=== PATIENT | female | born 1960 | race Caucasian/White ===

== ENCOUNTER 2017-11-17 08:50 | Emergency (ER) | payer OTHER ==
[~2017-11-17] VITALS: Ht 160 cm; Wt 95.3 kg
[2017-11-17 08:50] VITALS: BP 140/80
[~2017-11-17 08:50] MED LIST: ATI.5 PO
--- NOTE | 2017-11-17 08:51 | NUR ---
PT BIBA ALS TO BED 4
--- NOTE | 2017-11-17 09:15 | NUR ---
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 PT STATES, "I AM HAVING AN ALCOHOL WITHDRAWAL". PER PT HER LAST DRINK WAS LATE LAST NIGHT. PT REPORTS "TREMORS" BUT NONE ARE NOTED AT THIS TIME. PT PRESENTS ANXIOUS AND RESTLESS. PT O2 SAT 99% RA. HR 98 AT THIS TIME. RR EVEN AND UNLABORED. LUNGS CLEAR. PT SPEAKING IN FULL, COMPLETE, AND APPROPRIATE SENTENCES. SEIZURE PRCAUTIONS INITIATED AT THIS TIME A PRECAUTIONARY MEASURE. PT DENIES HX SEIZURES. DENIES N/V/D/FEVER/CHILLS. PT PRESENTS WITH SKIN THAT IS WARM AND DRY TO THE TOUCH. ABD SOFT, NON-TENDER. GCS 15. CMS INTACT. ER MD ROLLE NOTIFIED. PT NEEDS MET. SAFETY PRECAUTIONS IN PLACE. WILL CONTINUE TO MONITOR.
[2017-11-17] MEDS ORDERED: LORazepam 2 MG/ML VIAL IVP ONE (09:25)
[2017-11-17] MEDS ORDERED: NACL 0.9% 1,000 ML IV ONE (09:25)
[2017-11-17] MEDS ORDERED: MULTIVITAMIN-12 10 ML, THIAMINE 100 MG, MAGNESIUM SULFATE 50% 2,000 MG, FOLIC ACID 5 MG... IV ONE ×5 (09:25)
[2017-11-17] MEDS ORDERED: diphenhydrAMINE 50 MG/ML VIAL IVP ONE (09:25)
--- NOTE | 2017-11-17 09:35 | NUR ---
XRAY AT BEDSIDE
--- NOTE | 2017-11-17 09:42 | NUR ---
XRAY AT BEDSIDE AT THIS TIME.
[2017-11-17 09:53] LABS: BASOPHILS # (AUTO) 0.1 K/uL (0.00-0.22); BASOPHILS % (AUTO) 1.8 % (0.0-2.0); EOSINOPHILS % (AUTO) 0.7 % (0.0-4.0); HEMATOCRIT 44.3 % (36-48); HEMOGLOBIN 15.4 g/dL (12.0-16.0); LYMPHOCYTES # (AUTO) 1.8 K/uL (2.5-16.5); LYMPHOCYTES % (AUTO) 28.4 % (20.5-51.1); MEAN CORPUSCULAR HEMOGLOBIN 31 pg (27-31); MEAN CORPUSCULAR HGB CONC 35 g/dL (33-37); MEAN CORPUSCULAR VOLUME 90.2 fL (80-94); MONOCYTES # (AUTO) 0.2 K/uL (0.8-1.0); MONOCYTES % (AUTO) 3.7 % (1.7-9.3); NEUTROPHILS # (AUTO) 4.1 K/uL (1.8-7.7); NEUTROPHILS % (AUTO) 65.4 % (42.2-75.2); PLATELET COUNT (AUTO) 218 K/uL (140-450); RED BLOOD CELL COUNT(AUTO) 4.91 MIL/uL (4.20-5.40); RED CELL DISTRIBUTION WIDTH 13.1 % (11.6-13.7); WHITE BLOOD COUNT (AUTO) 6.3 K/uL (4.8-10.8)
[2017-11-17 10:05] LABS: ANION GAP 15.2 (8-16); CARBON DIOXIDE 25.8 mmol/L (21-32); CREATININE 0.7 mg/dL (0.6-1.3)
[2017-11-17 10:12] LABS: ALBUMIN 3.9 g/dL (3.4-5.0); TOTAL BILIRUBIN 0.7 mg/dL (0.0-1.0)
--- NOTE | 2017-11-17 10:29 | NUR ---
Pt in hospital bed at this time w/ at the bedside. safety and seizure precautions in place. vss. will continue to monitor.
[2017-11-17] MEDS ORDERED: hydrOXYzine 50 MG/ML VIAL IM ONE (10:40)
--- NOTE | 2017-11-17 11:25 | NUR ---
pt ambulates to restroom at this time from bed 4 w/ steady gait w/ for assist.
[2017-11-17] MEDS ORDERED: hydrOXYzine HCL 25 MG TAB PO ONE (12:00)
--- NOTE | 2017-11-17 12:10 | NUR ---
PT UP FOR DISCHARGE AT THIS TIME, BUT PT RECEIVED [place] MINUTES AGO, IN ADDITION TO BANANA BAG STILL RUNNING. PT MONITORING TO BE CONTINUED AT THIS TIME. PT REMAINS AT BEDSIDE.
[2017-11-17 12:13] LABS: APPEARANCE,URINE CLEAR (CLEAR); BILIRUBIN,URINE NEGATIVE (NEGATIVE); BLOOD, URINE 2+ (NEGATIVE); COLOR,URINE YELLOW (YELLOW); UGLUCOSE NEG (NEGATIVE)
[2017-11-17 12:14] LABS: LEUKOCYTE ESTERASE ,URINE NEGATIVE (NEGATIVE); NITRITE, URINE NEGATIVE (NEGATIVE)
--- NOTE | 2017-11-17 12:19 | NUR ---
PT RESTING IN [facility] AT THIS TIME W/ VSS. SAFETY AND SEIZURE PRECAUTIONS IN PLACE. PT AT BEDSIDE. RR EVEN AND UNLABORED. WILL CONTINUE TO MONITOR.
[2017-11-17] MEDS ORDERED: LORazepam 2 MG/ML VIAL IM ONE (12:25)
[2017-11-17 12:51] LABS: BARBITURATE, URINE NEGATIVE ng/ml (NEG <=200); BENZODIAZEPINE, URINE NEGATIVE ng/mL (NEG <=200); CANNABINOID, URINE NEGATIVE ng/mL (NEG <=50); COCAINE, URINE NEGATIVE ng/mL (NEG <=300); OPIATE, URINE NEGATIVE ng/mL (NEG <=2000); PHENCYCLIDINE SCREEN,URINE NEGATIVE ng/mL (NEG <=25)
[2017-11-17 12:57] LABS: RBC,URINE 0-5 (RARE) /HPF (0-5); WBC,URINE NONE SEEN /HPF (0-5)
--- NOTE | 2017-11-17 13:02 | NUR ---
Pt resting [place] [facility] [place] at this time w/ rr even and unlabored, lung evangelista clear. vss. safety and seizure precautions in place. family remains at bedside. pt needs met. will continue to monitor.
[2017-11-17 13:17] VITALS: BP 131/85
--- NOTE | 2017-11-17 13:25 | NUR ---
Patient discharged with v/s stable. Written and verbal after care instructions given and explained. Patient alert, oriented and verbalized understanding of instructions. Ambulatory with steady gait. All questions addressed prior to discharge. ID band removed. Patient advised to follow up with PMD. Rx of Vistaril given. Patient educated on indication of medication including possible reaction and side effects. Opportunity to ask questions provided and answered.
--- NOTE | 2017-11-20 13:15 | NUR ---
LATE SUBMISSION BANANA BAG START TIME 1130 END TIME 1325 NS START TIME 0940 END TIME 1325
== END 2017-11-17 13:25 | disposition home or self-care (01) ==
LOC: MED 08:50
DX: F10.129 Alcohol abuse with intoxication, unspecified (principal); J45.909 Unspecified asthma, uncomplicated; E11.9 Type 2 diabetes mellitus without complications; I10 Essential (primary) hypertension; Z88.6 Allergy status to analgesic agent; Y90.6 Blood alcohol level of 120-199 mg/100 ml
CPT/HCPCS: 36415; 71045; 80053; 80305; 81001; 83735; 84484; 85025; 93005; 96361; 96365; 96366; 96372; 96375; 99285; A9153; G0482; J1200; J2060; J3411; J3475; J3490; J7030; J3410

== ENCOUNTER 2018-05-28 15:57 | Emergency (ER) | payer OTHER ==
[~2018-05-28] VITALS: Ht 160 cm; Wt 113.4 kg
--- NOTE | 2018-05-28 15:57 | NUR ---
PT BIBA BLS TO BED 10
[2018-05-28 16:00] VITALS: BP 150/93
--- NOTE | 2018-05-28 16:10 | NUR ---
PATIENT FROM HOME. PATIENT ABLE TO ANSWER QUESTIONS SLOWLY,STILL ALTERED. BEEN DRINKING BEER PER PATIENT. DENIES PAIN AT THIS TIME. HX: ALCOHOLISM. PATIENT STATED SHE TAKES NORCO FOR LEG INJURY DENIES N/V/D; SKIN IS PINK/WARM/DRY; AAOX4 WITH EVEN AND STEADY GAIT; LUNGS CLEAR BL; HR EVEN AND REGULAR; PT DENIES ANY FEVER, CP, SOB, OR COUGH AT THIS TIME; PATIENT STATES PAIN OF 0/10 AT THIS TIME; VSS; PATIENT POSITIONED FOR COMFORT; HOB ELEVATED; BEDRAILS UP X2; BED DOWN. ER MD MADE AWARE OF PT STATUS.
--- NOTE | 2018-05-28 16:34 | NUR ---
TECH AT BEDSIDE PREFORMING EKG
[2018-05-28 16:56] LABS: BASOPHILS # (AUTO) 0.1 K/uL (0.00-0.22); BASOPHILS % (AUTO) 1.7 % (0.0-2.0); EOSINOPHILS % (AUTO) 0.3 % (0.0-4.0); HEMATOCRIT 43.1 % (36-48); HEMOGLOBIN 14.3 g/dL (12.0-16.0); LYMPHOCYTES # (AUTO) 2.1 K/uL (2.5-16.5); LYMPHOCYTES % (AUTO) 39.1 % (20.5-51.1); MEAN CORPUSCULAR HEMOGLOBIN 31 pg (27-31); MEAN CORPUSCULAR HGB CONC 33 g/dL (33-37); MONOCYTES # (AUTO) 0.4 K/uL (0.8-1.0); MONOCYTES % (AUTO) 7.9 % (1.7-9.3); NEUTROPHILS # (AUTO) 2.7 K/uL (1.8-7.7); PLATELET COUNT (AUTO) 219 K/uL (140-450); RED BLOOD CELL COUNT(AUTO) 4.63 MIL/uL (4.20-5.40); RED CELL DISTRIBUTION WIDTH 13.2 % (11.6-13.7); WHITE BLOOD COUNT (AUTO) 5.3 K/uL (4.8-10.8)
--- NOTE | 2018-05-28 17:22 | NUR ---
#14 MICRONESIAN STRAIGHT CATH KIT USED TO OBTAIN URINE SAMPLE. STERILE TECHNIQUE USED. PATIENT TOLERATED WELL.
[2018-05-28 17:28] LABS: ANION GAP 12.7 (8-16); POTASSIUM 3.7 mmol/L (3.5-5.1)
[2018-05-28 17:29] LABS: CREATININE 0.6 mg/dL (0.6-1.3)
[2018-05-28 17:34] LABS: ALBUMIN 3.6 g/dL (3.4-5.0); TOTAL BILIRUBIN 0.4 mg/dL (0.0-1.0)
--- NOTE | 2018-05-28 18:30 | NUR ---
PATIENT USED BEDPAN WITH NO ISSUES
[2018-05-28 18:49] LABS: APPEARANCE,URINE CLEAR (CLEAR); BILIRUBIN,URINE NEGATIVE (NEGATIVE); BLOOD, URINE 1+ (NEGATIVE); COLOR,URINE YELLOW (YELLOW); LEUKOCYTE ESTERASE ,URINE NEGATIVE (NEGATIVE); NITRITE, URINE NEGATIVE (NEGATIVE); UGLUCOSE NEGATIVE (NEGATIVE)
[2018-05-28] MEDS ORDERED: LIDOCAINE VISCOUS 2% 20 ML UDC PO ONE (18:50)
[2018-05-28] MEDS ORDERED: ALUMINUM HYD/MAG/SIMETHICONE 30 ML UDC PO ONE (18:50)
--- NOTE | 2018-05-28 19:14 | NUR ---
REPORT GIVEN TO BATSHEVA FOR CONTINUED CARE
--- NOTE | 2018-05-28 19:15 | NUR ---
RECEIVED REPORT FROM AM NURSE. PT LAYING IN BED, RR EVEN AND UNLABORED. AT BEDSIDE. ALL NEEDS MET AT THIS TIME.
[2018-05-28 19:40] VITALS: BP 145/73
--- NOTE | 2018-05-28 19:40 | NUR ---
Patient discharged with v/s stable. Written and verbal after care instructions given and explained. Patient alert, oriented and verbalized understanding of instructions. Ambulatory with steady gait. All questions addressed prior to discharge. ID band removed. Patient advised to follow up with PMD. Rx of VALIUM given. Patient educated on indication of medication including possible reaction and side effects. Opportunity to ask questions provided and answered.
== END 2018-05-28 19:40 | disposition home or self-care (01) ==
LOC: MED 15:57
DX: S00.01XA Abrasion of scalp, initial encounter (principal); F10.129 Alcohol abuse with intoxication, unspecified; R41.0 Disorientation, unspecified; M79.606 Pain in leg, unspecified; J45.909 Unspecified asthma, uncomplicated; F17.200 Nicotine dependence, unspecified, uncomplicated; Z88.5 Allergy status to narcotic agent; Z79.899 Other long term (current) drug therapy; X58.XXXA Exposure to other specified factors, initial encounter; Y93.89 Activity, other specified; Y92.89 Other specified places as the place of occurrence of the external cause; Y99.8 Other external cause status
CPT/HCPCS: 36415; 70450; 80053; 81003; 81025; 82948; 84484; 85025; 93005; 99284; G0482